=== PATIENT | female | born 1960 | race Caucasian/White ===

== ENCOUNTER 2018-01-30 22:16 | Observation (INO) ==
--- NOTE | 2018-01-30 22:47 | ED ---
HPI General Chief Complaint: Chest Pain Stated Complaint: Chest Pain Time Seen by Provider: 01/30/18 22:33 Source: patient Mode of arrival: EMS Limitations: no limitations History of Present Illness HPI narrative: 58-year-old female presents to the emergency department from her sister's home for evaluation of chest pain that began after she became emotionally distraught when she found out that next week she would not be able to stay in her sister's home. Patient reports that on February 08 she is scheduled to have brain aneurysm surgery performed at [facility] by her nurse patient had clipping of aneurysm 14 years ago. Patient has annual angiography to monitor the aneurysm. Patient states that her neurosurgeon indicated that the previous clipped aneurysm was showing evidence of some enlargement and the determination was that she needed to have procedural intervention that has been scheduled for 02/08/18. Patient states she has been living with her sister here locally but sister is going out of town next week and states that she will not be allowed to stay in the home while her sister is not residing in the home at the same time and is away on vacation. Patient states when she identified this was her state of residence next week that she would be homeless she became very upset became very tearful and as she became more more distraught she started developing left-sided chest pain. Patient denies having any headache. Patient denies any referred neck jaw back shoulder arm pain. No nausea or vomiting. Patient had EKG performed by EMS in transit which revealed no acute injury pattern and patient did not receive any medications in route to the hospital. Patient states that her pain goes away when her emotional distress subsides. Patient has no prior history of cardiac disease according to the patient. Patient denies diabetes. Patient states crying and becoming upset worsens her symptoms relaxing and calming down from her emotional distress believes her discomfort. MD complaint: chest pain Complete Quality Measures for STEMI Alert Patients STEMI Alert: No Onset (ago): minute(s) Duration: intermittent Onset: other (with emotional distress) Pain location: left chest Severity: moderate Quality: heaviness Pain radiation: none and other (relaxing and not thinking about sister and being homeless) Relieving factors: other (relaxing) Exacerbating factors: other (emotion) Treatments prior to arrival chest pain: none Related Data On Oral Contraceptives: No Allergies Allergy/AdvReac Type Severity Reaction Status Date / Time codeine Allergy Itching Verified 01/30/18 22:44 Penicillins Allergy Itching Verified 01/30/18 22:44 Review of Systems ROS: all other systems reviewed are negative PMFSH History History Provided By: Patient (Hypertension hypothyroidism chronic back pain arthritis cerebral aneurysm aneurysm clipping carotid artery disease knee surgery wrist surgery) Medical History Medical History Aneurysm (Acute) Arthritis (Acute) Hypertension (Acute) Social History Social History Recent Travel in [facility] within the Last 8 Weeks: No Recent Out of Country Travel within the Last 8 Weeks: No Exam Narrative Exam Narrative: GENERAL: Well-nourished, well-developed patient. Tearful and crying. SKIN: Focused skin assessment warm/dry. HEAD: Normocephalic. EYES: No scleral icterus. No injection or drainage. NECK: Supple, trachea midline. No JVD or lymphadenopathy. CARDIOVASCULAR: Regular rate and rhythm without murmurs, gallops, or rubs. Radial and dorsalis pedis pulses 2+ to palpation bilaterally. RESPIRATORY: Breath sounds equal bilaterally. No accessory muscle use. GASTROINTESTINAL: Abdomen soft, non-tender, nondistended. MUSCULOSKELETAL: No cyanosis, or edema. BACK: Nontender without obvious deformity. No CVA tenderness. Course Initial Documented Vital Signs Temperature 98.7 F 01/30/18 22:28 Pulse Rate 102 H 01/30/18 22:28 Respiratory Rate 22 01/30/18 22:28 Pulse Oximetry 95 01/30/18 22:28 Last Documented Vital Signs Temperature 98.7 F 01/30/18 22:28 Pulse Rate 81 01/31/18 02:18 Respiratory Rate 14 01/31/18 02:18 Blood Pressure 108/54 L 01/31/18 02:18 Pulse Oximetry 92 L 01/31/18 02:18 Medical Decision Making MDM Narrative Medical decision making narrative: 58-year-old female presents to the emergency department by EMS transport from home for complaint of left-sided chest pain that worsens with crying and becoming emotionally upset and dissipates and resolves when relaxed and conversing and not thinking about becoming homeless. Patient states she has been residing with her sister who is going out of town and will not allow her to stay in her home for the next 4 days and the patient is very upset as she has no place to live or reside and is fearful of being on the streets. Patient also reports that she is scheduled to have aneurysm surgery for cerebral aneurysm 02/08/18 in [place] at [facility] by her neurosurgeon who she has been established with for several years. Patient had cerebral aneurysm clipping 14 years ago. Patient placed on environmental monitoring technician IV access obtained specimens collected and sent for resulting EKG performed shows normal sinus rhythm no acute ST elevation or injury pattern age- indeterminate QS septally. Patient developed 4/10 left-sided chest pain was administered half inch of Nitropaste to chest wall also received 162 mg of aspirin with resolution of chest pain currently 0/10 in intensity. First troponin I is less than 0.02 patient will be placed in chest pain center per protocol for serial enzymes in view of risk factor of age and hypertension. Medical Screen Exam Complete: Yes Emergency Medical Condition: Yes Lab Data Result diagrams: 01/31/18 00:15 01/31/18 00:15 Lab Results 01/31/18 01/31/18 01/31/18 Range/Units 00:15 00:15 00:15 WBC 4.4 (4.0-11.0) th/mm3 RBC 5.49 H (4.00-5.30) mil/mm3 Hgb 14.2 (11.6-15.3) gm/dL Hct 42.2 (35.0-46.0) % MCV 76.9 L (80.0-100.0) fL MCH 25.8 L (27.0-34.0) pg MCHC 33.6 (32.0-36.0) % RDW 17.6 H (11.6-17.2) % Plt Count 386 (150-450) th/mm3 MPV 9.3 (7.0-11.0) fL Neut % (Auto) 30.7 (16.0-70.0) % Lymph % (Auto) 55.6 H (9.0-44.0) % [place] % (Auto) 13.0 H (0.0-8.0) % Eos % (Auto) 0.1 (0.0-4.0) % Baso % (Auto) 0.6 (0.0-2.0) % Neut # (Auto) 1.3 L (1.8-7.7) th/mm3 Lymph # (Auto) 2.4 (1.0-4.8) th/mm3 [place] # (Auto) 0.6 (0.0-0.9) th/mm3 Eos # (Auto) 0.0 (0.0-0.4) th/mm3 Baso # (Auto) 0.0 (0.0-0.2) th/mm3 WBC Differential . Differential Comment Auto diff final PT 9.4 L (9.8-11.6) sec INR 0.9 Ratio APTT 26.1 (24.3-30.1) sec Sodium 142 (136-145) meq/L Potassium 3.6 (3.5-5.1) meq/L Chloride 108 H (98-107) meq/L Carbon Dioxide 23.8 (21.0-32.0) meq/L Anion Gap 10 (5-15) meq/L BUN 14 (7-18) mg/dL Creatinine 0.65 (0.50-1.00) mg/dL Estimated GFR Greater than 89 (>89) mL/min Random Glucose 78 (74-106) mg/dL Calcium 10.0 (8.5-10.1) mg/dL Magnesium 2.1 (1.5-2.5) mg/dL Troponin I Less than 0.02 L (0.02-0.05) ng/mL Serum Alcohol Less than 3 (0-5) mg/dL Imaging Data Radiologist's impression: Chest X-Ray 01/31/18 00:09 CONCLUSION: Mild atelectasis or consolidation at the medial right base. Elevation of the left hemidiaphragm. ECG Data Attestation: I personally reviewed and interpreted this ECG as follows: Prior ECG tracings: available for review Interpretation: EKG: Normal sinus rhythm no acute ST elevation or injury pattern age-indeterminate septal infarct Discharge Plan Discharge Disposition Patient Disposition: 30 Still Patient Discharge Condition Condition: Stable Discharge Details Diagnosis: Chest pain, HTN (hypertension), H/O cerebral aneurysm repair Physicians Team ED Provider: Verenice Post Discharge Instructions Patient Printed Instructions: Chest Pain (ED) Discharge Interventions Interventions: Vital Signs Last Done: 01/30/18 22:37 Status ED Status: With Doctor
--- NOTE | 2018-01-31 00:35 | XR ---
EXAM DATE: 01/31/2018 12:32 AM EDT AGE/SEX: 58 years / Female INDICATIONS: Midsternal chest pain today off and on. CLINICAL DATA: This is the patient's initial encounter. Patient reports that signs and symptoms have been present for 1 day and indicates a pain score of 2/10. MEDICAL/SURGICAL HISTORY: None. None. COMPARISON: No prior exams available for comparison. FINDINGS: The heart size is normal. There is elevation of the left hemidiaphragm. There is mild increased densi ty at the right base. No effusion is seen. CONCLUSION: Mild atelectasis or consolidation at the medial right base. Elevation of the left hemidiaphragm. Electronically signed by: Kevin Cordon MD 01/31/2018 12:34 AM EDT
[2018-01-31 00:54] LABS: Baso % (Auto) 0.6 % (0.0-2.0); Eos % (Auto) 0.1 % (0.0-4.0); Hematocrit 42.2 % (35.0-46.0); Hemoglobin 14.2 gm/dL (11.6-15.3); Lymph # (Auto) 2.4 th/mm3 (1.0-4.8); Lymph % (Auto) 55.6 % (9.0-44.0); Mean Corpuscular HGB Conc 33.6 % (32.0-36.0); Mean Corpuscular Hemoglobin 25.8 pg (27.0-34.0); Mean Corpuscular Volume 76.9 fL (80.0-100.0); Mean Platelet Volume 9.3 fL (7.0-11.0); Mono # (Auto) 0.6 th/mm3 (0.0-0.9); Neut # (Auto) 1.3 th/mm3 (1.8-7.7); Neut % (Auto) 30.7 % (16.0-70.0); Platelet Count 386 th/mm3 (150-450); Red Blood Count 5.49 mil/mm3 (4.00-5.30); Red Cell Distribution Width 17.6 % (11.6-17.2); White Blood Count 4.4 th/mm3 (4.0-11.0)
[2018-01-31 01:01] LABS: Activated Partial Thrombo Time 26.1 sec (24.3-30.1); INR 0.9 Ratio; Prothrombin Time 9.4 sec (9.8-11.6)
[2018-01-31 01:07] LABS: Anion Gap 10 meq/L (5-15); Blood Urea Nitrogen 14 mg/dL (7-18); Carbon Dioxide 23.8 meq/L (21.0-32.0); Chloride 108 meq/L (98-107); Glomerular Filtration Rate Greater Than 89 mL/min (>89); Glucose,Random 78 mg/dL (74-106); Magnesium 2.1 mg/dL (1.5-2.5); Potassium 3.6 meq/L (3.5-5.1); Sodium 142 meq/L (136-145)
[2018-01-31] MEDS: Sod Chloride 0.9% Inj 1,000 ML IV.CONT SCH ×2 (03:46→13:57)
[2018-01-31] MEDS ORDERED: Acetaminophen 500 MG Tablet PO PRN (04:45)
[2018-01-31] MEDS ORDERED: Sod Chloride 0.9% Inj 1,000 ML IV.CONT SCH (04:45)
[2018-01-31 05:47] LABS: Troponin I 0.04 ng/mL (0.02-0.05)
[2018-01-31 08:50] LABS: Troponin I 0.03 ng/mL (0.02-0.05)
[2018-01-31] MEDS ORDERED: Aspirin 325 MG Tablet PO SCH ×2 (09:00→10:00)
[2018-01-31 09:04] VITALS: RESP 16
[2018-01-31] MEDS ORDERED: Levothyroxine 125 MCG Tablet PO SCH (10:00)
[2018-01-31] MEDS ORDERED: Lisinopril 10 MG Tablet PO SCH (10:00)
[2018-01-31] MEDS ORDERED: Baclofen 10 MG Tablet PO SCH (10:00)
[2018-01-31] MEDS ORDERED: Gabapentin 300 MG Capsule PO SCH (10:00)
--- NOTE | 2018-01-31 10:32 | P.HPCA ---
History of Present Illness Primary Care Physician: khushboo caldwell Chief Complaint: Chest pain History of Present Illness: This is a 58-year-old female history of cerebral aneurysm repair with clipping about 14 years ago, hypertension, and tobacco abuse who presents to ED to be evaluated for chest discomfort. Patient states that she just found out that she will have to leave her sister's house next week and will not be able to come back. She states she began to cry severely and developed chest discomfort which she states was a left-sided sharp pain that radiated to her left arm. Will last a few minutes. It would return every time she started to cry but would resolve when she would calm herself down. Denies nausea or diaphoresis. States it has been years since she had a stress test but it was okay years ago. States that she was told about 2 months ago that she will need another intervention on the aneurysm. She is scheduled for intervention on February 08, 2018 in [place]. Patient denies headaches. Denies numbness tingling or weakness in extremities. Denies visual changes. Voices compliance with her blood pressure medications. Currently denies chest discomfort. Patient smokes most recently about 2 3 cigarettes a day for the last 2 weeks prior that was smoking about 2 packs of cigarettes per week for year as she is been trying to quit smoking. However for about 40 years she is smoked about three-quarter pack of cigarettes a day. Rarely has alcohol. Denies illicit drug use. States that her brother age 47 of myocardial infarction. Her father age 76 of myocardial infarction of the past week 67 of a myocardial infarction. - Diagnosis (1) Chest pain (2) HTN (hypertension) (3) H/O cerebral aneurysm repair (4) Tobacco abuse (5) Chronic back pain Review of Systems General: Patient denies fevers, chills, and recent travel. HEENT: Patient denies headache, sore throat, difficulty swallowing. Cardiovascular: Has the chest discomfort as mentioned above. Denies sensation of heart beating rapidly or irregularly. No syncope. Denies diaphoresis. Respiratory: She was short of breath. Denies inspirational chest discomfort. Denies coughing wheezing or hemoptysis. GI: Patient denies nausea, vomiting, diarrhea, abdominal pain, bloody stools. Musculoskeletal: Patient denies joint pain or edema. Denies calf pain or edema. Neurovascular: Patient denies numbness, tingling, weakness in extremities. Denies headache. Endocrine: Denies polyuria and polydipsia. Hematologic: Denies easy bruising. Skin: Denies rash or itching. PMFSH - History History Provided By: Patient - Medical History Medical History: Medical History (Last Reviewed 01/30/18 @ 22:51 by Verenice Post MD) Aneurysm Arthritis Hypertension - Tobacco History Smoking Status: Never smoker - Alcohol History How Often Do You Have a Drink Containing Alcohol: Never - Substance Use History Substance History: No History of Abuse - Travel History Recent Travel in the [place] Within the Last 8 Weeks: No Recent Travel Out of the Country Within the Last 8 Weeks: No Medications and Allergies Active Medications: Active Medications Acetaminophen (Tylenol) 500 mg PO Q4H PRN PRN Reason: HEADACHE Aspirin (Aspirin) 325 mg PO DAILY [facility] Last Admin: 01/31/18 08:14 Dose: 325 mg Baclofen (Lioresal) 10 mg PO BID [facility] Last Admin: 01/31/18 10:12 Dose: 10 mg Gabapentin (Neurontin) 600 mg PO BID [facility] Last Admin: 01/31/18 10:12 Dose: 600 mg Sodium Chloride (Ns Inj) 1,000 mls @ 100 mls/hr IV.CONT .Q10H [facility] Last Admin: 01/31/18 03:46 Dose: 100 mls/hr Sodium Chloride (Ns Inj) 1,000 mls @ 100 mls/hr IV.CONT .Q10H [facility] Last Admin: 01/31/18 08:28 Dose: 100 mls/hr Levothyroxine Sodium (Synthroid) 125 mcg PO DAILY@0600 [facility] Last Admin: 01/31/18 10:12 Dose: 125 mcg Lisinopril (Prinivil) 10 mg PO DAILY [facility] Last Admin: 01/31/18 10:12 Dose: 10 mg Nitroglycerin (Nitro-Bid 2% Oint) 0.5 inch TOPICAL Q6HR [facility] Last Admin: 01/31/18 08:27 Dose: Not Given Ondansetron HCl (Zofran Inj) 4 mg IV.PUSH Q6H PRN PRN Reason: NAUSEA Sodium Chloride (Ns Flush) 2 ml IV.FLUSH UNSCH PRN PRN Reason: FLUSH AFTER USING IV ACCESS Sodium Chloride (Ns Flush) 2 ml IV.FLUSH BID [facility] Last Admin: 01/31/18 08:14 Dose: 2 ml Sodium Chloride (Ns Flush) 2 ml IV.FLUSH PRN PRN PRN Reason: FLUSH AFTER USING IV ACCESS Allergies Allergy/AdvReac Type Severity Reaction Status Date / Time codeine Allergy Itching Verified 01/30/18 22:44 Penicillins Allergy Itching Verified 01/30/18 22:44 Home Medications Medication Instructions Recorded Confirmed Type aspirin 325 mg PO DAILY 01/31/18 01/31/18 History baclofen 10 mg PO BID 01/31/18 01/31/18 History gabapentin 600 mg PO BID 01/31/18 01/31/18 History levothyroxine 125 mcg PO DAILY 01/31/18 01/31/18 History lisinopril 10 mg PO DAILY 01/31/18 01/31/18 History varenicline [Chantix] 1 mg PO BID 01/31/18 01/31/18 History Exam Vital signs: Vital Signs 01/30/18 22:28 01/30/18 22:37 01/31/18 00:09 Temperature 98.7 F Pulse Rate 102 H 91 H 82 Respiratory Rate 22 18 18 Blood Pressure 169/78 H 113/53 L Pulse Oximetry 95 97 95 01/31/18 02:18 01/31/18 09:00 Temperature 97.9 F Pulse Rate 81 66 Respiratory Rate 14 16 Blood Pressure 108/54 L 117/63 Pulse Oximetry 92 L 93 L Intake & Output 01/30/18 01/31/18 01/31/18 18:59 06:59 18:59 Weight 72.575 kg Narrative: GENERAL: This is a well-nourished, well-developed patient, in no apparent distress. Patient speaks in clear complete sentences. Patient is pleasant. HEENT: Head is atraumatic and normocephalic. Neck is supple without lymphadenopathy and trachea is midline. No JVD or carotid bruits. CARDIOVASCULAR: Regular rate and rhythm without murmurs, gallops, or rubs. RESPIRATORY: Clear to auscultation. Breath sounds equal bilaterally. No wheezes , rales, or rhonchi. Chest wall is nontender. No use of accessory muscles. GASTROINTESTINAL: Abdomen is nontender, nondistended. Abdomen soft. No obvious pulsatile mass or bruit. No CVA tenderness. Strong femoral pulses bilaterally. Normal bowel sounds in all quadrants. MUSCULOSKELETAL: Patient is moving upper and lower extremities freely. No calf tenderness or edema, no Homans sign. Strong pulses in upper and lower extremities. NEUROLOGICAL: Patient is alert and oriented. Cranial nerves 2-12 are grossly intact. No focal deficits and speech is clear. SKIN: No rash and turgor is normal. Results 01/31/18 00:15 01/31/18 00:15 Cardiac Enzymes 01/31/18 01/31/18 01/31/18 Range/Units 00:15 05:15 08:10 Troponin I Less than 0.02 L 0.04 0.03 (0.02-0.05) ng/mL Coagulation 01/31/18 Range/Units 00:15 PT 9.4 L (9.8-11.6) sec APTT 26.1 (24.3-30.1) sec CBC 01/31/18 Range/Units 00:15 WBC 4.4 (4.0-11.0) th/mm3 RBC 5.49 H (4.00-5.30) mil/mm3 Hgb 14.2 (11.6-15.3) gm/dL Hct 42.2 (35.0-46.0) % Plt Count 386 (150-450) th/mm3 Neut # (Auto) 1.3 L (1.8-7.7) th/mm3 Lymph # (Auto) 2.4 (1.0-4.8) th/mm3 [place] # (Auto) 0.6 (0.0-0.9) th/mm3 Eos # (Auto) 0.0 (0.0-0.4) th/mm3 Baso # (Auto) 0.0 (0.0-0.2) th/mm3 Comprehensive Metabolic Panel 01/31/18 Range/Units 00:15 Sodium 142 (136-145) meq/L Potassium 3.6 (3.5-5.1) meq/L Chloride 108 H (98-107) meq/L Carbon Dioxide 23.8 (21.0-32.0) meq/L BUN 14 (7-18) mg/dL Creatinine 0.65 (0.50-1.00) mg/dL Calcium 10.0 (8.5-10.1) mg/dL Intake and Output 01/30/18 01/31/18 01/31/18 22:59 06:59 14:59 Other: Weight 72.575 kg EKG interpretations - EKG EKG shows: sinus rhythm (EKG is sinus rhythm with nonspecific ST changes.) Caprini VTE Risk Assessment Caprini VTE Risk Assessment: No/Low Risk (score <= 1) Caprini Risk Assessment Model: Point Value = 1 Point Value = 2 Point Value = 3 Point Value = 5 Age 41-60 Minor surgery BMI > 25 kg/m2 Swollen legs Varicose veins or History of unexplained or recurrent spontaneous Oral contraceptives or hormone replacement Sepsis (< 1 month) Serious lung disease, including pneumonia (< 1 month) Abnormal pulmonary function Acute myocardial infarction Congestive heart failure (< 1 month) History of inflammatory bowel disease Medical patient at bed rest Age 61-74 Arthroscopic surgery Major open surgery (> 45 min) Laparoscopic surgery (> 45 min) Malignancy Confined to bed (> 72 hours) Immobilizing plaster cast Central venous access Age >= 75 History of VTE Family history of VTE Factor V Leiden Prothrombin [id number] Lupus anticoagulant Anticardiolipin antibodies Elevated serum homocysteine Heparin-induced thrombocytopenia Other congenital or acquired thrombophilia Stroke (< 1 month) Elective arthroplasty Hip, pelvis, or leg fracture Acute spinal cord injury (< 1 month) Prophylaxis Regimen: Total Risk Factor Score Risk Level Prophylaxis Regimen 0-1 Low Early ambulation 2 Moderate Order ONE of the following: *Sequential Compression Device (SCD) *Heparin 5000 units SQ BID 3-4 Higher Order ONE of the following medications: *Heparin 5000 units SQ TID *Enoxaparin/Lovenox 40 mg SQ daily (WT < 150 kg, CrCl > 30 mL/min) *Enoxaparin/Lovenox 30 mg SQ daily (WT < 150 kg, CrCl > 10-29 mL/min) *Enoxaparin/Lovenox 30 mg SQ BID (WT < 150 kg, CrCl > 30 mL/min) AND/OR *Sequential Compression Device (SCD) 5 or more Highest Order ONE of the following medications: *Heparin 5000 units SQ TID (Preferred with Epidurals) *Enoxaparin/Lovenox 40 mg SQ daily (WT < 150 kg, CrCl > 30 mL/min) *Enoxaparin/Lovenox 30 mg SQ daily (WT < 150 kg, CrCl > 10-29 mL/min) *Enoxaparin/Lovenox 30 mg SQ BID (WT < 150 kg, CrCl > 30 mL/min) AND *Sequential Compression Device (SCD) Assessment and Plan - Assessment (1) Chest pain Code(s): R07.9 - Chest pain, unspecified Status: Acute (2) HTN (hypertension) Code(s): I10 - Essential (primary) hypertension Status: Acute (3) H/O cerebral aneurysm repair Code(s): Z98.890 - Other specified postprocedural states; Z86.79 - Personal history of other diseases of the circulatory system Status: Acute (4) Tobacco abuse Code(s): Z72.0 - Tobacco use Status: Acute (5) Chronic back pain Code(s): M54.9 - Dorsalgia, unspecified; G89.29 - Other chronic pain Status: Acute - Plan * Chest pain: Patient has had serial cardiac enzymes and EKGs for ruling out purposes. She will be seen by Dr. Martel of cardiology in the chest pain center. I discussed this patient with Dr. Martel, she will have a Lexiscan at this time. She would like to be discharged home if her stress test is nonischemic with instructions to follow-up with PCP. Return to ED for interval issues. * Hypertension: Resume medication. * History of cerebral aneurysm repair: Patient is to continue her follow-up with her neurosurgeon and keep her blood pressure under control. * Tobacco abuse: Patient counseled importance of smoking cessation. Patient is stable at this time. She is agreeable to this plan. H&P: Quality - VTE Deep Vein Thrombosis/Pulmonary Embolism Present on Admission: No
[2018-01-31] MEDS ORDERED: Regadenoson Inj 0.4 MG/5 ML Syringe IV.PUSH ONE (12:21)
--- NOTE | 2018-01-31 14:47 | NM ---
EXAM DATE: 01/31/2018 2:39 PM EDT AGE/SEX: 58 years / Female INDICATIONS:Angina. . Chest pain. CLINICAL DATA: This is the patient's initial encounter. Patient reports that signs and symptoms have been present for 1 day and indicates a pain score of 0/10. MEDICAL/SURGICAL HISTORY: Hypertension. Total knee replacement, left. Cerebral aneurysm clippin g. COMPARISON: No prior exams available for comparison. DOSE: 8.5 mCi Tc 99m Myoview at rest 27.2 mCi [id number] at stress 0.4 mg Lexiscan STRESS SYMPTOMS: Dyspnea and weird feeling. EJECTION FRACTION: 69 % TECHNIQUE: The patient underwent pharmacologic stress with infusion of prescribed dose. Continuous ECG tracing was monitored during stress. Gated SPECT imaging was performed after stress and conventi onal SPECT imaging was performed at rest. The examination was performed on a SPECT/CT scanner, both attenuation and non-corrected datasets were reviewed. FINDINGS: Distribution: The maximum perfused segment at stress is in the anterolateral wall. Perfusion Study: The pattern of perfusion at stress is within normal limits. Gated Study: There are intact wall motion and wall thickening without hypokinetic or dyskinetic segm ents. The ejection fraction is calculated at 69%. RISK CATEGORY: Low (<1% Annual Motality Rate) CONCLUSION: 1. No evidence for stress-induced ischemia. 2. Intact wall motion with EF of 69%. Electronically signed by: Gene Russo MD 01/31/2018 2:46 PM EDT
--- NOTE | 2018-01-31 14:51 | TR ---
Date Performed: 01/31/2018 Time Performed: 12:38:16 DOCTOR: Bhavesh Martel DRUG LIST: CLINICAL HISTORY: REASON FOR TEST: REASON FOR ENDING: OBSERVATION: CONCLUSION: COMMENTS: Lexiscan stress test was performed under standard four minute protocol. Radionuclide was injected one minute prior to ending the test. No electrocardiographic abormalities were present t o suggest ischemia. Nuclear imaging and interpretation are pending.
--- NOTE | 2018-01-31 14:58 | ECG ---
Date Performed: 01/30/2018 Time Performed: 22:35:11 PTAGE: 58 years EKG: Sinus rhythm Poor R wave progression NO PREVIOUS TRACING DOCTOR: Bhavesh Martel Interpretating Date/Time 01/31/2018 14:57:12
[2018-01-31 15:46] VITALS: BP 122/66; PULSE 83; TEMP 97.7; O2SAT 97
== END 2018-01-31 16:17 | disposition home or self-care (01) ==
LOC: NEDA 22:16 → NEPC 22:16 → NEPGCP 22:16